=== PATIENT | female | born 1975 | race Caucasian/White ===

== ENCOUNTER → 2016-05-07 | Outpatient (CLI) | payer BC | END | disposition home or self-care (01) | LOC: GMA 14:18 | PROVIDERS: ATTEND Nurse Practitioner Acute Care | DX: Z01.419 Encounter for gynecological examination (general) (routine) without abnormal findings (principal) ==

== ENCOUNTER → 2017-01-22 | Outpatient (CLI) | payer BC | END | disposition home or self-care (01) | LOC: GMAM 11:10 | PROVIDERS: ATTEND Family Medicine | DX: R53.83 Other fatigue (principal); M53.81 Other specified dorsopathies, occipito-atlanto-axial region ==

== ENCOUNTER → 2017-04-21 | Outpatient (CLI) | payer BC ==
--- NOTE | 2017-04-23 15:44 | MAM ---
EXAM DESCRIPTION: 3D Screening BILATERAL : Digital Mammography. CLINICAL HISTORY: 41 years Female SCREENING . No complaints. No family history breast cancer. Premenopausal. No HRT. COMPARISON: Baseline study at this facility. No prior reports available. TECHNIQUE: Bilateral CC and MLO projection full-field images, 3-D tomosynthesis digital mammographic technique. Also bilateral synthesized CC/ MLO full-field images. CAD not utilized. FINDINGS: The breast parenchymal density pattern is: Heterogeneously dense breast tissue, which may obscure small masses. No skin thickening or nipple retraction well-defined mass density with smooth margins and similar density to surrounding tissues posterior third right breast in the axillary tail. Surrounded by radiolucent "halo". Focal asymmetry or architectural distortion in the anterior medial left breast at the 900 clock position approximately 4 cm from the nipple. Not associated with calcifications. No suspicious microcalcifications bilaterally. IMPRESSION: BI-RADS CATEGORY: 0 - INCOMPLETE- Need additional imaging evaluation. FOLLOW-UP: Recall for additional imaging: Full field 3-D tomosynthesis left breast LM imaging. Targeted bilateral breast ultrasound to include the mass density in the right axillary tail. Written communication concerning the IMPRESSION and Follow-up, will be mailed to the patient and referring health care provider. Electronically signed by: Patel Stein MD 04/23/2017 3:43 PM LICENSING REPRESENTATIVE
== END ==
LOC: MAMMO 08:30
PROVIDERS: ATTEND Family Medicine
DX: Z12.31 Encounter for screening mammogram for malignant neoplasm of breast (principal)

== ENCOUNTER → 2017-04-29 | Outpatient (CLI) | payer BC ==
--- NOTE | 2017-04-29 15:06 | US ---
EXAM DESCRIPTION: Breast,Bilateral: Ultrasound CLINICAL HISTORY: 41 yearsFemaleABNORMAL MAMMO. Focal asymmetry retroareolar left breast. Lymph node right axillary tail. COMPARISON: Digital 2-D diagnostic mammogram bilateral breasts on this visit. TECHNIQUE: Transcutaneous scanning of the bilateral breasts utilizing two-dimensional and Doppler modes. Scanning performed by the strategic solutions consultant and Dr. Stein. FINDINGS: Scanning of the 9:00 and 3:00 sectors of the retroareolar left breast. Heterogeneous fatty and fibroglandular tissues. No distinct solid mass or cyst. No skin changes or nipple retraction. No large calcification. Normal vascularity. Scanning of the right axillary tail shows homogeneous fatty echoes. No distinct solid mass or cyst. No skin changes. No large calcification. Normal vascularity. IMPRESSION: 1. Bi-Rads Category 2: Benign. 2. Please refer to bilateral 3-D tomosynthesis diagnostic mammographic examination and report on this visit. The FINDINGS and the FOLLOW-UP plan were reviewed in person with the patient after the examination. Written communication explaining the IMPRESSION and FOLLOW-UP will be mailed to the patient and referring care provider. Electronically signed by: Patel Stein MD 04/29/2017 3:05 PM WORK OVER RIG OPERATOR
--- NOTE | 2017-04-29 15:06 | MAM ---
EXAM DESCRIPTION: 3D Diagnostic, Bilateral : Digital Mammography. CLINICAL HISTORY: 41 years Female ABNORMAL MAMMO . Focal asymmetry in the left retroareolar breast. Lymph nodes in the right axillary tail and right axilla.. COMPARISON: 3-D tomosynthesis bilateral screening mammogram 04/21/2017.. Bilateral targeted breast ultrasound to follow this examination. Report from prior examination also reviewed. TECHNIQUE: Bilateral 3-D tomosynthesis scans full field LM projection with synthesized images bilaterally. FINDINGS: The breast parenchymal density pattern is: Heterogeneously dense breast tissue, which may obscure small masses. No skin thickening or nipple retraction . The focal asymmetry in the retroareolar left breast cannot be replicated on this examination. Multiple well-defined mass densities with appearance consistent with lymph nodes in the right axilla and axillary tail of the right breast posterior third. ULTRASOUND: Scanning of the 9:00 and 3:00 sectors of the retroareolar left breast. Heterogeneous fatty and fibroglandular tissues. No distinct solid mass or cyst. No skin changes or nipple retraction. No large calcification. Normal vascularity. Scanning of the right axillary tail shows homogeneous fatty echoes. No distinct solid mass or cyst. No skin changes. No large calcification. Normal vascularity. IMPRESSION: BI-RADS CATEGORY: 2 - BENIGN FINDINGS. FOLLOW UP: Return to routine digital bilateral screening, one year interval from April 2017. Written communication explaining the IMPRESSION and follow-up, will be mailed to the patient and referring health care provider. According to the [employer], yearly mammograms are recommended starting at age 40 and continuing as long as a woman is in good health. Any breast change noted on a breast self-exam should be reported promptly to the patient's healthcare provider. Breast MRI is recommended for women with an approximately 20-25% or greater lifetime risk of breast cancer, including women with a strong family history of breast or ovarian cancer and women who have been treated for Hodgkin's disease. A negative mammographic report should not delay tissue diagnosis in patients with significant clinical history or physical findings. Extremely dense breast tissue limits the sensitivity of digital mammography. Electronically signed by: Patel Stein MD 04/29/2017 3:05 PM [facility]
== END ==
LOC: MAMMO 13:35
PROVIDERS: ATTEND Family Medicine
DX: R92.8 Other abnormal and inconclusive findings on diagnostic imaging of breast (principal)
CPT/HCPCS: 76641; 77066; G0279

== ENCOUNTER 2017-05-29 13:11 | Inpatient (IN) | payer BC ==
[2017-05-29] MEDS ORDERED: SODIUM CHLORIDE 0.9% 1000ML 1,000 ML IVS PRN (14:10)
[2017-05-29] MEDS ORDERED: SODIUM CHLORIDE 0.9% (FLUSH) 10 ML SYG IV PRN ×2 (14:10→17:55)
[2017-05-29] MEDS ORDERED: KETOROLAC TROMETHAMINE INJ 30 MG/ML VIAL IV ONE (14:10)
[2017-05-29] MEDS ORDERED: PROMETHAZINE HCL INJ 25 MG in SODIUM CHLORIDE 0.9% 50ML 50 ML IVPB ONE (14:11)
[2017-05-29] MEDS ORDERED: PROMETHAZINE HCL INJ 25 MG/ML VIAL ONE (14:27)
[2017-05-29] MEDS ORDERED: SODIUM CHLORIDE 0.9% 50ML 50 ML ONE (14:28)
--- NOTE | 2017-05-29 14:45 | RAD ---
EXAM DESCRIPTION: Chest,1 View CLINICAL HISTORY: 41 years Female, COUGH, FEVER COMPARISON: None. IMPRESSION: Heart size and pulmonary vascularity are within normal limits. There is mild patchy airspace consolidation in the right lung base, most consistent with pneumonia. Recommend follow-up radiographs after therapy to confirm resolution. Suspected small right pleural effusion. No pneumothorax. No acute osseous abnormality. Electronically signed by: Fabricio Brandt MD 05/29/2017 2:43 PM CDT
[2017-05-29] MEDS ORDERED: levoFLOXacin 750MG IV 750 MG in PREMIX BAG 1 BAG IVPB ONE (14:59)
--- NOTE | 2017-05-29 15:04 | ED.PDOC ---
History of Present Illness - General Chief Complaint: General Stated Complaint: fever,JOHNS,dizziness Time Seen by Provider: 05/29/17 13:38 Source: patient Exam Limitations: no limitations - History of Present Illness Initial Comments: PT REPORTS 5 DAY HISTORY OF FEVER, HEADACHE, COUGH, NASAL CONGESTION. PT REPORTS ONSET OF NAUSEA AND VOMITING YESTERDAY AND NOW REPORTS DIZZINESS TODAY WITH A NEAR SYNCOPAL EPISODE. PT REPORTS BEING SEEN AT URGENT CARE YESTERDAY AND RECIEVING FLUIDS WITH LITTLE IMPROVEMENT. PT HAS NOT BEEN TAKING ANY OTC MEDS FOR SYMPTOMS AND STATES SHE TESTED NEGATIVE FOR STREP AND FLU AT URGENT CARE. NO OTHER LABS OR DIAGNOSTIC STUDIES WERE PERFORMED. Timing/Duration: 1 week Severity: moderate Improving Factors: nothing Worsening Factors: nothing Associated Symptoms: cough, fever/chills, headaches, nausea/vomiting, weakness Allergies/Adverse Reactions: Allergies NO KNOWN ALLERGY Allergy (Unverified 10/10/12 08:37) Home Medications: Ambulatory Orders Buspirone HCl 15 mg PO BID 05/29/17 Sertraline HCl 100 mg PO DAILY 05/29/17 Review of Systems - Review of Systems Constitutional: States: chills, fever EENTM: States: nose congestion. Denies: throat pain Respiratory: States: cough. Denies: short of breath Cardiology: Denies: chest pain, palpitations Gastrointestinal/Abdominal: States: abdominal pain, nausea, vomiting Genitourinary: Denies: dysuria, frequency Musculoskeletal: Denies: joint pain, joint swelling Skin: Denies: dryness, lesions Neurological: States: headache. Denies: paresthesia Past Medical History (General) - Patient Medical History Hx Stroke: No Hx Congestive Heart Failure: No Hx Diabetes: No Hx Renal Disease: No - Vaccination History Hx Influenza Vaccination: Yes - Social History Hx Tobacco Use: Yes - stopped 4 weeks ago Hx Substance Use: No - Female History Patient is a Female of Child Bearing Age (10 -59 yrs old): Yes Hx Last Menstrual Period: 01/09/12 Expected Date of Delivery:: 10/17/12 Family Medical History - Family History Mother Family History: Unknown Living Status: Unknown Physical Exam - Physical Exam General Appearance: Alert, Obvious distress, Well Developed, Well Groomed, Well Hydrated Ears, Nose, Throat: hearing grossly normal Neck: non-tender, full range of motion, supple Respiratory: lungs clear, normal breath sounds, no respiratory distress Cardiovascular/Chest: regular rate, rhythm, no edema, no murmur Gastrointestinal/Abdominal: soft, tenderness - MILD DIFFUSE Back Exam: normal inspection, no CVA tenderness Extremity: non-tender, normal inspection Neurologic: alert, normal mood/affect, oriented x 3 Skin Exam: normal color, warm/dry Progress - Progress Progress: 05/29/17 15:22 PT RESTING COMFORTABLY ON RE-EVAL, REPORTS SOME IMPROVEMENT IN HEADACHE AND NAUSEA. LABS AND DIAGNOSTICS DISCUSSED. PT AGREES TO STAY FOR ADDITIONAL TREATMENT AND EVALUATION. - Results/Orders Results/Orders: 05/29/17 14:10 Sodium Chloride 0.9% (Flush) [Saline Flush Syringe] 10 ml IV PRN PRN Sodium Chloride 0.9% 1000ML [Ns 1000 ml] 1,000 ml IVS .QD URINALYSIS Stat 05/29/17 14:59 levoFLOXacin 750MG IV [Levaquin 750MG IV] 750 mg Premix Bag 1 bag IVPB ONCE BLOOD CULTURE Stat Laboratory Results - last 24 hr 05/29/17 05/29/17 05/29/17 14:10 14:10 14:10 WBC 6.1 RBC 4.99 Hgb 15.8 Hct 46.4 MCV 92.9 MCH 31.5 H MCHC 34.0 RDW 13.0 Plt Count 149 MPV 9.4 Absolute Neuts (auto) 4.90 Absolute Lymphs (auto) 0.70 L Absolute Monos (auto) 0.40 Absolute Eos (auto) 0.00 Absolute Basos (auto) 0.00 Neutrophils % 81.0 H Lymphocytes % 12.0 L Monocytes % 6.0 Eosinophils % 0.4 L Basophils % 0.6 Sodium 138 Potassium 3.5 L Chloride 106 Carbon Dioxide 24 Anion Gap 11.5 L BUN 9 Creatinine 0.71 BUN/Creatinine Ratio 12.7 Random Glucose 87 Serum Osmolality 273.7 L Calcium 8.9 Total Bilirubin 0.9 Direct Bilirubin 0.4 H Indirect Bilirubin 0.5 AST 67 H ALT 78 H Alkaline Phosphatase 107 Serum Total Protein 7.1 Albumin 3.5 Lipase 26 Serum HCG, Qual Negative - EKG/XRAY/CT XRAY: chest - RLL INFILTRATE WITH SMALL PLEURAL EFFUSION Departure - Departure Clinical Impression: Pleural effusion, Nausea & vomiting, Headache, Fever, Dizziness Pneumonia Qualifiers: Pneumonia type: due to unspecified organism Laterality: right Lung location: lower lobe of lung Qualified Code(s): J18.1 - Lobar pneumonia, unspecified organism Time of Disposition: 15:26 Disposition: Admit Patient Condition: Fair Departure Forms: ED Discharge - Pt. Copy, Patient Portal Self Enrollment Referrals: Fred Martinez MD [Primary Care Provider] - 1-2 Weeks Home Medications: Ambulatory Orders Buspirone HCl 15 mg PO BID 05/29/17 Sertraline HCl 100 mg PO DAILY 05/29/17 Decision To Admit - Decistion To Admit Decision to Admit Reason: Admit from ER Decision to Admit Date: 05/29/17 - CASE DISCUSSED WITH DR. JACKSON WHO AGREES TO ADMIT. Decision to Admit Time: 15:26
[2017-05-29] MEDS ORDERED: LORazepam 0.5 MG TAB PO ONE (15:40)
--- NOTE | 2017-05-29 16:04 | HP ---
HISTORY OF PRESENT ILLNESS: This 41 year-old white female is admitted to the hospital from the Emergency Room because of significant worsening cough with associated fever, dizziness, nausea with vomiting, abdominal pain and headache. It has been getting worse for the last 2 months but has been present for 4 or 5 months. Symptoms were so severe that she even stopped smoking about a month ago. She was seen initially in the [facility] clinic with the nurse practitioner and was given a steroid shot and some allergy medicines with no significant change in her symptoms. Symptoms failed to improve and in fact worsened until yesterday and she was seen in Urgent Care where she was given an IV and some allergy medications with no significant improvement in her symptoms , so she came to the Emergency Room today. She has had near syncopal episodes. In the Emergency Room today, her laboratory studies were generally unremarkable. Chest x-ray shows a right lower lobe with an effusion suggesting an early pneumonia process. The patient is admitted to the hospital because of failing outpatient therapy with radiographic evidence of a right lower lobe pneumonia with low-grade fever of 99.5, low blood pressure of 91 systolic. Of note also is that her last menstrual period is now and she has a significant history with a very heavy and painful menstrual cycle monthly with associated anemia that she has had in the past. PAST MEDICAL HISTORY: 1. Bronchitis. 2. Anemia. 3. Menometrorrhagia. PAST OBSTETRICAL HISTORY: 2 Para 2 with no miscarriages. PAST SURGICAL HISTORY: None. CURRENT MEDICATIONS: Please refer to nurses' notes for a list of verified home medicines. ALLERGIES: NONE. FAMILY HISTORY: Positive for coronary artery disease, congestive heart failure , rheumatoid arthritis, fibromyalgia, hypertension, cancer and diabetes. 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 She has smoked 1/2 pack of cigarettes a day for approximately the last 15 years and stopped about a month ago. REVIEW OF SYSTEMS: No significant weight change but she has had some fever with associated chills with her current illness. HEENT: Hearing and vision seems to be okay. Significant coughing to the point of gagging is noted. LUNGS: Some severe coughing with yellowish grayish sputum production. Coughing so severe that she has difficulty sleeping at night. No hemoptysis. No pleuritic pain but when she takes a deep breath it triggers significant coughing. CARDIOVASCULAR: Heart is fast at times. No significant chest pains. GASTROINTESTINAL: Decreased appetite. Some followup questions reveal some fatty food/greasy foods intolerance with some associated nausea for which she is trying to avoid. No diarrhea. No blood in the stools. She has been vomiting a lot of times relate to sever paroxysms of coughing. EXTREMITIES: Well formed. No significant edema. NEUROLOGIC: Some headaches have been present but no focal weakness. PHYSICAL EXAMINATION: VITAL SIGNS: Temperature 99.8 with blood pressure down to 91/60, respirations 18, pulse oximetry 94% on room air in the Emergency Room. Weight is 82.3 kilos. GENERAL: She is awake and alert. Frequent spasms of coughing are noted. The was present for some of the history to assist with filling in the blanks. HEENT: Unremarkable. Buccal mucosa is moist. Hearing appears to be equal bilaterally. Vision is good. NECK: Supple with no carotid bruits. CHEST: Lungs have some diminished breath sounds, occasional rhonchi more on the right base compared to the left. CARDIOVASCULAR: Heart tones are fairly regular. No significant gallops. ABDOMEN: Soft with fairly good bowel tones. No organomegaly, masses or tenderness. Mild epigastric touchiness though upon palpation is evident. EXTREMITIES: Fairly well formed with good muscle tone. No significant tenderness. Negative Babinski's and negative Homans. No significant edema. NEUROLOGIC: Within normal limits with the patient awake, alert and oriented, and communicative with no focal weaknesses noted. LABORATORY STUDIES: White count 6,100 with 81% neutrophils, hemoglobin 15.8 with a generally normocytic/normochromic presentation. Chemistry shows potassium low at 3.5, BUN 9, creatinine 0.7, glucose 87, osmolality 273.7. Liver enzymes slightly elevated. Albumin 3.5. test negative. Blood cultures pending. Urinalysis pending. RADIOLOGY: Chest x-ray shows evidence of a right lower lobe infiltrate suggesting a pneumonia process with followup necessary. ASSESSMENT: 1. Acute right lower lobe pneumonia with infiltrative process on chest x-ray, probable community acquired having failed outpatient therapy with several clinic visits. 2. Acute bronchitis though present for a number of months possibly related to chronic tobacco abuse with underlying infectious condition at the present time. 3. Febrile illness with temperature 99.8. 4. Hypotension with systolic 91. 5. Elevated liver enzymes to be observed. 6. Chronic tobacco use now stopped for the last month. 7. History of anemia, possible iron deficiency but at this time fairly normal indices noted. 8. Symptomatic menometrorrhagia with painful periods currently in progress. 9. Nausea and vomiting, rule out gallbladder disease with fatty food intolerance versus emesis related to the deep coughing present. PLAN: The patient is admitted to the hospital for initiation of antibiotic therapy with Levaquin and Azithromycin. Gallbladder ultrasound in the morning. Give some Decadron via medication nebulizers and continue with DuoNeb bronchodilation. Short course of prednisone to be tried. Repeat chest x-ray and lab in the morning. Sputum culture is pending. Try to assist her in getting some sleep. Ambulation studies to determine if she needs oxygen and potassium supplements to prevent further lowering of the potassium level. Close followup suggested and followup with Dr. Martinez when clinically stable. #[id number] [facility]
[2017-05-29] MEDS ORDERED: ONDANSETRON INJ 4 MG/2 ML VIAL IV PRN (17:58)
[2017-05-29] MEDS ORDERED: LEVALBUTEROL NEBS 1.25 MG/3 ML VIAL INH PRN (17:58)
[2017-05-29] MEDS ORDERED: HYDROcodone 5MG/APAP 325MG 1 EA TAB PO PRN (17:58)
[2017-05-29] MEDS ORDERED: ACETAMINOPHEN 325 MG TAB PO PRN (17:58)
[2017-05-29] MEDS ORDERED: IV SET AND CAP CHANGE INJ INJ SCH (18:00)
[2017-05-29] MEDS ORDERED: AZITHROMYCIN 250 MG TAB PO SCH (18:00)
[2017-05-29] MEDS ORDERED: DEXAMETHASONE INJ 2 MG, SODIUM CHLORIDE 0.9% NEB 3 ML NEB ONE ×2 (18:09)
[2017-05-29] MEDS ORDERED: SODIUM CHLORIDE 0.9% NEB 3 ML VIAL NEB ONE (18:31)
[2017-05-29] MEDS ORDERED: DEXAMETHASONE INJ 4 MG/ML VIAL ONE (18:31)
[2017-05-29] MEDS: predniSONE 20 MG TAB PO SCH (18:41)
[2017-05-29] MEDS: KCL 20 MEQ/NS 1,000 ML IVS PRN (18:41)
[2017-05-29] MEDS: IPRATROPIUM/ALBUTEROL 3 ML VIAL INH SCH ×2 (19:13→19:57)
[2017-05-29] MEDS ORDERED: busPIRone HCL 5 MG TAB ONE (19:25)
[2017-05-29] MEDS: POTASSIUM CHLORIDE 10 MEQ TAB PO SCH (20:09)
[2017-05-29] MEDS: BENZONATATE PERLES 100 MG CAP PO SCH (20:09)
[2017-05-29] MEDS ORDERED: NON-FORMULARY MEDICATION 1 EA MIS (Buspirone Hcl [Buspirone Hcl] 15 MG) PO SCH (21:00)
[2017-05-29] MEDS: TEMAZEPAM 15 MG CAP PO PRN ×2 (21:16→22:13)
[2017-05-30] MEDS: KCL 20 MEQ/NS 1,000 ML IVS PRN (05:05)
[2017-05-30] MEDS ORDERED: DEXAMETHASONE INJ 2 MG, SODIUM CHLORIDE 0.9% NEB 3 ML NEB ONE ×2 (07:00)
--- NOTE | 2017-05-30 08:07 | RAD ---
EXAM DESCRIPTION: Chest,2 Views CLINICAL HISTORY: Pneumonia COMPARISON: Previous study May 29, 2017 TECHNIQUE: PA/lateral FINDINGS: The left lung is clear. Discoid atelectasis in the right lung base is seen which is slightly improved compared to the previous study. Heart size is normal with normal pulmonary vascularity. No pleural effusion or pneumothorax. Lungs are clear with no consolidating infiltrate. Lateral view shows intact sternum and T-spine. IMPRESSION: Mild interval improvement of the right lower lobe. Electronically signed by: Ray Paris MD 05/30/2017 8:04 AM CDT
[2017-05-30] MEDS ORDERED: DEXAMETHASONE INJ 4 MG/ML VIAL ONE (08:33)
[2017-05-30] MEDS ORDERED: SODIUM CHLORIDE 0.9% NEB 3 ML VIAL ONE (08:33)
[2017-05-30] MEDS: IPRATROPIUM/ALBUTEROL 3 ML VIAL INH SCH ×4 (08:36→20:45)
--- NOTE | 2017-05-30 09:42 | US ---
EXAM DESCRIPTION: Gall Bladder: ULTRASOUND. CLINICAL HISTORY: vomiting with fat intolerance COMPARISON: None. TECHNIQUE: Transabdominal scannin-dimensional and Doppler modes. FINDINGS: Gallbladder: normal size, shape, echogenicity; no intraluminal stones or sludge. No fluid around the gallbladder. Wall thickness upper normal limits 3.1 mm. Non-tender with transducer pressure. Common bile duct: caliber 4.3 mm within normal limits. Liver: normal echogenicity; contour liver capsule smooth where seen. No fluid around the liver. Intrahepatic biliary ducts normal caliber. Doppler hepatopedal flow portal vein.. Long axis right lobe 15.8 cm. 2.4 x 2.4 x 2.4 cm well-defined echogenic lesion abutting the gallbladder fossa. Pancreas: normal size and echogenicity. Duct not seen. IMPRESSION: Normal ultrasound of the gallbladder with no stones or sludge. Borderline thickness of the wall but nontender with transducer pressure. No surrounding fluid. 2.4 cm hepatic hemangioma abutting the gallbladder. Common benign lesion. If clinically indicated, can repeat ultrasound in 3 month interval or nonemergent triple phase hepatic CT scan. Pancreas unremarkable. No ascites. Normal caliber common bile duct. Electronically signed by: Patel Stein MD 05/30/2017 9:40 AM CDT
[2017-05-30] MEDS: BENZONATATE PERLES 100 MG CAP PO SCH ×3 (10:14→20:53)
[2017-05-30] MEDS: busPIRone HCL 5 MG TAB PO SCH ×2 (10:14→20:53)
[2017-05-30] MEDS: SERTRALINE HCL 50 MG TAB PO SCH (10:14)
[2017-05-30] MEDS: predniSONE 20 MG TAB PO SCH (10:14)
[2017-05-30] MEDS: POTASSIUM CHLORIDE 10 MEQ TAB PO SCH (10:14)
[2017-05-30] MEDS: OMEPRAZOLE CAP 20 MG CAP PO SCH (10:15)
[2017-05-30] MEDS ORDERED: ONDANSETRON 4 MG TAB PO PRN (10:27)
[2017-05-30] MEDS ORDERED: levoFLOXacin 750MG IV 750 MG in PREMIX BAG 1 BAG IVPB SCH (15:00)
[2017-05-30] MEDS ORDERED: AZITHROMYCIN 250 MG TAB PO SCH (15:00)
--- NOTE | 2017-05-30 17:06 | PN ---
DATE: 05/30/17 SUBJECTIVE: The patient is lying in the bed. She has a good smile and states that she feels improved today compared to last evening. The only time that we can elicit a cough, which is much less severe than it was yesterday, is when we ask her to take deep breaths during auscultation examination. Appetite is improving. Family is present. Now is day 1 of her parenteral antibiotic therapy. OBJECTIVE: See vitals. Afebrile compared to the febrile state she was noted to have upon admission. LUNGS: Generally clear to auscultation with some slight cough on deep inspiration much less than it was last evening. HEART: Tones are regular. ABDOMEN: Soft. The patient is feeling so much better that she actually wants to go home but is encouraged to continue with parenteral therapy for at least 1 more midnight helping to continue the improvement for lasting recovery. LABORATORY: Potassium is up from 3.5 to 4.1 with supplementation. Kidney function is normal. Glucose 178 but she had eaten some candy the night before. Iron stores are low. Liver enzymes have gone up from AST 67 to 226, ALT 78 to 194 with bilirubin being even lower. Albumin 3.1. Sputum and blood cultures negative. RADIOLOGY: Repeat chest x-ray shows some resolution of the previously noted right lower lobe pneumonia process. Gallbladder ultrasound was performed fasting and showed thickening of the gallbladder sen but no stones and fairly normal caliber of the intraductal collecting system. ASSESSMENT: 1. Acute right lower lobe pneumonia probable community acquired with infiltrative process on chest x-ray showing some slight resolution on followup having failed outpatient therapy with several clinic visits and being sick for an extended period of time. 2. Acute bronchitis present for 4 or 5 months possibly related to chronic tobacco abuse with an underlying infectious or allergic condition to be considered but with symptoms significantly improved after 1 evening of combined antiinflammatory and antibacterial treatment course. 3. Febrile illness showing some improvement. 4. Hypotension persisting. 5. Elevated liver enzymes with normal bilirubin possibly suggestive of a transient viral illness with followup suggested in the morning. 6. Chronic tobacco use now stopped for the last month. 7. History of anemia with low iron stores and binding capacity. 8. Symptomatic menometrorrhagia with painful periods currently in progress. 9. Nausea and vomiting with no evidence of significant gallbladder illness possibly related to the underlying condition with possible viral illness and possible etiology of the elevated liver enzymes showing some improvement. PLAN: Reevaluate in the morning with enzymes and routine studies. If significantly improved, the patient very much would wish to continue with outpatient therapy being followed closely by Dr. Martinez in the clinic. Consider home use of bronchodilators and a short course of prednisone tapering. Anti-allergy medicine such as Claritin can also be utilized, especially if her symptoms worsen when she goes outside. Close followup is necessary to ensure continued improvement. Close followup of the liver enzyme elevations as well. [facility][id number] [facility]
[2017-05-30] MEDS: TEMAZEPAM 15 MG CAP PO PRN (22:02)
[2017-05-31] MEDS: OMEPRAZOLE CAP 20 MG CAP PO SCH (06:22)
[2017-05-31] MEDS: IPRATROPIUM/ALBUTEROL 3 ML VIAL INH SCH ×2 (07:43→11:37)
[2017-05-31] MEDS: predniSONE 20 MG TAB PO SCH (08:54)
[2017-05-31] MEDS: SERTRALINE HCL 50 MG TAB PO SCH (08:54)
[2017-05-31] MEDS: busPIRone HCL 5 MG TAB PO SCH (08:54)
[2017-05-31] MEDS: BENZONATATE PERLES 100 MG CAP PO SCH (08:54)
[2017-05-31 10:16] VITALS: BP 101/66; TEMP 97.8
[2017-05-31 13:11] VITALS: O2SAT 96
--- NOTE | 2017-06-02 08:55 | DS ---
SUPERVISING PHYSICIAN: Fred Martinez MD DISCHARGE DIAGNOSIS: 1. Acute right lower lobe pneumonia, community acquired, with infiltrative process on chest x-ray showing improvement some slight resolution on followup, having failed to respond to outpatient treatment measures in the clinic and having been sick for an extended period of time having recently quit smoking. 2. Acute bronchitis present for 4 or 5 months, possibly related to chronic tobacco abuse with an underlying infectious or allergic condition to be considered with symptoms significantly improved after one evening of combined antiinflammatory and antibacterial treatment measures. 3. Febrile illness, showing improvement. 4. Hypotension, persistent. 5. Elevated liver enzymes with normal bilirubin suggestive of a transient viral illness with followup suggested. 6. Chronic tobacco use now stopped for the last month. 7. Symptomatic menometrorrhagia with painful periods currently in progress. 8. Nausea and vomiting with no evidence of significant gallbladder disease, possibly related to the underlying condition with possible viral illness and possible etiology of the elevated liver enzymes, showing improvement. REASON FOR HOSPITALIZATION: Ms. Shaw is a 41-year-old female patient who was admitted to the hospital from the Emergency Room because of significant worsening cough with associated fever, dizziness, nausea with vomiting, abdominal pain and headache. It had been getting worse for the last 2 months but has been present for 4 or 5 months. Symptoms were so severe that she even stopped smoking about a month ago. She was seen initially in the [facility] clinic with the nurse practitioner and was given a steroid shot and some allergy medicines with no significant change in her symptoms. Symptoms failed to improve and in fact worsened until the day before admission and she came to the Emergency Room for further evaluation. She has had near syncopal episodes. In the Emergency Room, her laboratory studies were generally unremarkable. Chest x-ray showed a right lower lobe with an effusion suggesting an early pneumonia process. The patient is admitted to the hospital because of failing outpatient therapy with radiographic evidence of a right lower lobe pneumonia with low-grade fever of 99.5. Of note also is that her last menstrual period is now and she has a significant history with a very heavy and painful menstrual cycle monthly with associated anemia that she has had in the past. LABORATORY: CBC on admission showed white count 6,100 and at daily was 6,400. Hemoglobin 13.2, hematocrit 39.7, platelet count 146,000, differential did show an initial left shift, but this resolved after initiation of treatment and prior to discharge. Chemistries showed normal electrolytes with just a mildly low potassium initially at 3.5. At discharge, electrolytes were normal with potassium 3.6, BUN 9, creatinine 0.44, calcium 9.2. Iron was low at 25 with a TIBC of 225.4 with iron saturation 11%. Liver functions did show elevation. AST was up to 226, ALT 194, alkaline phosphatase 226. Prior to discharge and with fluids, AST was down to 96, ALT 169, alkaline phosphatase down to 211. Serum HCG was negative. Amylase was 26. Urinalysis showed trace intact blood with greater than 8.0 urobilinogen. Otherwise within normal limits. MICROBIOLOGY: Sputum culture showed normal meng at 48 hours. Blood cultures were negative for growth at 48 hours. RADIOLOGY: Chest x-ray in the Emergency Department prior to admission and single view chest showed mild patchy airspace consolidation of the right lung base, most consistent with pneumonia. Additional followup x-rays were completed. On 05/30/17 x-rays per radiologic interpretation of two view chest showed mild interval improvement of the right lower lobe. She also had a gallbladder ultrasound of 05/30/17 and per radiologic interpretation showed normal ultrasound of the gallbladder with no stones or sludge with borderline thickness of the wall, but nontender with transition pressure. No surrounding fluid. A 2.4 cm hepatic hemangioma abutting the gallbladder. Common benign lesion. Recommended followup with CT scan. Pancreas was noted to be unremarkable. There was no ascites and caliber of the bile ducts was normal. PLAN: Ms. Shaw was discharged on 05/31/17 with instructions to followup with Dr. Martinez next week. She was to resume home medications as instructed. She was to take new medications as directed and return to the hospital for any concerning symptoms. Activity was to increase as tolerated. Diet was regular as tolerated. Medications at discharge included: 1. Albuterol inhaler 1 puff q.4h. as needed. 2. Albuterol sulfate nebulizers 2.5 mg per 3 mL 1 inhaled q.4h. as needed, #30. 3. Azithromycin tablets 500 mg, #4. 4. Xyzal 5 mg at bedtime. 5. Levaquin 750 mg, #6. 6. Medrol Dosepak 4 mg as directed. Condition at discharge was stable and improved. #[id number] MTDD
== END 2017-05-31 12:15 | disposition home or self-care (01) | DRG 195 ==
LOC: ER 13:11 → MS 16:02
PROVIDERS: ADMIT Emergency Medicine; ATTEND Nurse Practitioner Family
DX: J18.9 Pneumonia, unspecified organism (principal); J20.9 Acute bronchitis, unspecified; N94.6 Dysmenorrhea, unspecified; E87.6 Hypokalemia; D64.9 Anemia, unspecified; N92.1 Excessive and frequent menstruation with irregular cycle; B34.9 Viral infection, unspecified; Z87.891 Personal history of nicotine dependence

== ENCOUNTER → 2020-01-05 | Outpatient (CLI) | payer BC | LOC: GMAM 10:19 | PROVIDERS: ATTEND Family Medicine | DX: Z00.00 Encounter for general adult medical examination without abnormal findings (principal); R53.83 Other fatigue ==